=== PATIENT | male | born 1965 | race Caucasian/White ===

== ENCOUNTER 2016-09-09 07:43 | Day surgery (SDC) | payer BC ==
[2016-09-09] MEDS ORDERED: Lactated Ringers 1,000 ML IV SCH (07:45)
[2016-09-09] MEDS ORDERED: Sodium Chloride 0.9% 10 ML Syringe FLUSH PRN (07:45)
[2016-09-09] MEDS ORDERED: Propofol 200 MG/20 ML SDV IV ONE (09:00)
--- NOTE | 2016-09-09 09:42 | PCM.OPNOTE ---
- General Post-Op/Procedure Note Date of Surgery/Procedure: 09/09/16 Operative Procedure(s): c scope with bx Findings: proctitis Pre Op Diagnosis: screening Post-Op Diagnosis: proctitis Anesthesia Technique: MAC Primary Surgeon: Chris Asher Anesthesia Provider: Ariel Trotter Pathology: rectum Complications: None Condition: Good Free Text/Narrative:: see dictation
--- NOTE | 2016-09-09 10:22 | OR ---
DATE OF OPERATION: 09/09/2016 SURGEON: Chris Asher MD PROCEDURE PERFORMED: Colonoscopy with cold forceps biopsy. PREOPERATIVE DIAGNOSIS: Screening colonoscopy. POSTOPERATIVE DIAGNOSIS: Questionable proctitis. INDICATIONS FOR PROCEDURE: This is a 50-year-old white male, who is completely asymptomatic, who is referred for screening colonoscopy. He was offered and accepted the same. DESCRIPTION OF PROCEDURE: After an excellent IV sedation was administered, digital rectal exam was performed. No marked abnormality was noted. The flexible colonoscope was inserted and advanced to the cecum without difficulty. The following findings were noted. Ascending colon, unremarkable. Transverse colon, unremarkable. Descending colon, unremarkable. Sigmoid, unremarkable. In rectum, just above the anal verge, there is what appears to be some inflamed tissues probably secondary to his prep. Biopsies were taken as well as photos. The patient tolerated the procedure well and was taken to his room in good condition. /[id number] VAL/OSCAR
[2016-09-09 10:39] VITALS: BP 128/76
== END 2016-09-09 10:40 | disposition home or self-care (01) ==
LOC: FB.SDS 07:43
PROVIDERS: ATTEND Surgery
DX: Z12.11 Encounter for screening for malignant neoplasm of colon (principal); D12.8 Benign neoplasm of rectum; I10 Essential (primary) hypertension; E78.5 Hyperlipidemia, unspecified; F17.210 Nicotine dependence, cigarettes, uncomplicated; Z79.899 Other long term (current) drug therapy
CPT/HCPCS: 45380; 88305; J2704; J7120

== ENCOUNTER 2019-08-18 16:47 | Emergency (ER) | payer BC ==
[2019-08-18] MEDS ORDERED: Cephalexin 250 MG Cap PO ONE (16:48)
--- NOTE | 2019-08-18 17:09 | EDM.PDOC ---
ED HPI GENERAL MEDICAL PROBLEM - General Chief Complaint: ENT Problem Stated Complaint: TOOTH PAIN Time Seen by Provider: 08/18/19 17:10 Source of Information: Reports: Patient, RN Notes Reviewed History Limitations: Reports: No Limitations - History of Present Illness INITIAL COMMENTS - FREE TEXT/NARRATIVE: 53 yo gentleman with with h/o dental caries. Presented with Left sided Jaw pain as well as worsening dental pain. No fever. Patient presented to the ER with worsening dental Pain. Duration: Chronic - Related Data Allergies Allergy/AdvReac Type Severity Reaction Status Date / Time No Known Allergies Allergy Verified 08/18/19 17:08 Home Meds: Home Meds Lisinopril/Hydrochlorothiazide [Lisinopril-Hctz 10-12.5 mg Tab] 1 each PO DAILY 09/08/16 [History] Mupirocin 1 applic TOP BID PRN 09/08/16 [History] atorvaSTATin [Lipitor] 10 mg PO DAILY 09/08/16 [History] cephALEXin [Keflex] 500 mg PO Q8H #21 cap 08/18/19 [Rx] Past Medical History HEENT History: Reports: Impaired Vision Cardiovascular History: Reports: High Cholesterol, Hypertension Respiratory History: Reports: SOB Musculoskeletal History: Reports: Back Pain, Chronic Neurological History: Reports: Other (See Below) Other Neuro History: BILAT CARPAL TUNNEL Endocrine/Metabolic History: Reports: Obesity/BMI 30+ Social & Family History - Caffeine Use Caffeine Use: Reports: Coffee, Soda ED ROS ENT - Review of Systems Review Of Systems: See Below Constitutional: Reports: No Symptoms HEENT: Reports: Dental Pain Respiratory: Reports: No Symptoms Cardiovascular: Reports: No Symptoms Endocrine: Reports: No Symptoms GI/Abdominal: Reports: No Symptoms : Reports: No Symptoms Musculoskeletal: Reports: No Symptoms Skin: Reports: No Symptoms Neurological: Reports: No Symptoms Psychiatric: Reports: No Symptoms Hematologic/Lymphatic: Reports: No Symptoms Immunologic: Reports: No Symptoms ED EXAM, ENT - Physical Exam Exam: See Below Exam Limited By: No Limitations General Appearance: Alert, WD/WN, No Apparent Distress Eye Exam: Bilateral Eye: EOMI, PERRL Ears: Normal External Exam, Normal Canal, Hearing Grossly Normal, Normal TMs Nose: Normal Inspection, Normal Mucousa, No Blood Mouth/Throat: Normal Inspection, Normal Gums, Normal Oropharynx, Other (obvious dental caries noted) Head: Atraumatic, Normocephalic Neck: Normal Inspection, Supple, Non-Tender, Full Range of Motion Respiratory/Chest: No Respiratory Distress, Lungs Clear, No Accessory Muscle Use , Chest Non-Tender Cardiovascular: Normal Peripheral Pulses, Regular Rate, Rhythm, No Edema, No Gallop, No JVD GI/Abdominal: Normal Bowel Sounds, Soft, Non-Tender, No Organomegaly Back: Normal Inspection, Full Range of Motion Extremities: Normal Inspection, Normal Range of Motion, Non-Tender, No Pedal Edema, Normal Capillary Refill Neurological: Alert, Oriented, CN II-XII Intact Psychiatric: Normal Affect, Normal Mood Skin: Warm, Dry Lymphatic: No Adenopathy Course - Vital Signs Last Recorded V/S: Last Vital Signs Temp 37.1 C 08/18/19 17:00 Pulse 85 08/18/19 17:00 Resp 17 08/18/19 17:00 BP 153/96 H 08/18/19 17:00 Pulse Ox 99 08/18/19 17:00 Departure - Departure Time of Disposition: 17:20 Disposition: Home, Self-Care 01 Condition: Good Clinical Impression: Dental caries, Pain due to dental caries - Discharge Information Prescriptions: cephALEXin [Keflex] 500 mg PO Q8H #21 cap Referrals: Jeremy Galaviz MD [Primary Care Provider] - Forms: ED Department Discharge Additional Instructions: Follow with PCP Ibuprofen for pain Return if symptoms worsen Call your Physician or Return to Emergency Department if: * Your condition worsens in any way. * You develop fever greater than 100.4. * You have vomitting that does not stop with medications. * You have pain that is not controlled with medications. Sepsis Event Note - Focused Exam Vital Signs: Vital Signs Temp Pulse Resp BP Pulse Ox 08/18/19 17:00 37.1 C 85 17 153/96 H 99 Date Exam was Performed: 08/18/19 Time Exam was Performed: 17:21
[2019-08-18 17:10] VITALS: BP 153/96; PULSE 85
== END 2019-08-18 17:35 | disposition home or self-care (01) ==
LOC: FB.ED 16:47
DX: K02.9 Dental caries, unspecified (principal); E78.00 Pure hypercholesterolemia, unspecified; I10 Essential (primary) hypertension; E66.9 Obesity, unspecified; Z68.42 Body mass index [BMI] 45.0-49.9, adult; Z79.899 Other long term (current) drug therapy
CPT/HCPCS: 99282; A9270